=== PATIENT | female | born 1950 | race African-American/Black ===

== ENCOUNTER 2016-08-22 09:38 | Emergency (ER) | payer MEDICARE, OTHER ==
[~2016-08-22] VITALS: Ht 157.5 cm; Wt 60.0 kg
[~2016-08-22 09:38] MED LIST: PHEN32.43 PO
[2016-08-22 09:57] LABS: GLUCOSE,POINT OF CARE 65 MG/DL (70-110)
[2016-08-22] MEDS ORDERED: SODIUM CHLORIDE 0.9% 1,000 ML IV ONE (10:45)
[2016-08-22 11:02] LABS: GLUCOSE,POINT OF CARE 124 MG/DL (70-110)
[2016-08-22 11:20] LABS: BASOPHILS % (AUTO) 0.1 % (0.0-2.0); EOSINOPHILS # (AUTO) 0.01 K/uL (0.00-0.70); HEMOGLOBIN 12.9 g/dL (12.0-16.0); LYMPHOCYTES % (AUTO) 23.8 % (22.0-44.0); MEAN CORPUSCULAR HEMOGLOBIN 29.3 pg (26.0-34.0); MEAN CORPUSCULAR HGB CONC 32.3 G/dL (31.0-37.0); MEAN CORPUSCULAR VOLUME 91 fL (80-100); MONOCYTES # (AUTO) 0.1 K/uL (0.1-1.0); MONOCYTES % (AUTO) 3.3 % (2.0-9.0); NEUTROPHILS # (AUTO) 3.2 K/uL (1.8-7.7); NEUTROPHILS % (AUTO) 72.7 % (40.0-70.0); PLATELET COUNT (AUTO) 151 K/uL (150-450); RED CELL DISTRIBUTION WIDTH 14.4 % (11.5-14.5); WHITE BLOOD COUNT (AUTO) 4.3 K/uL (4.5-11.0)
[2016-08-22 11:29] LABS: ANION GAP 13 mmol/L (8-16); CARBON DIOXIDE 28 mmol/L (22-29); CHLORIDE 101 mmol/L (98-107); CREATININE 0.67 mg/dL (0.60-1.30); GLOMERULAR FILTR. RATE CALC > 60 mL/min (>60); SODIUM SERUM 142 mmol/L (136-145); UREA NITROGEN, BLOOD 8 mg/dL (7-18)
[2016-08-22 11:53] LABS: ALANINE AMINOTRANSFERASE 20 U/L (12-78); ALBUMIN 3.8 g/dL (3.4-5.0); ASPARTATE AMINOTRANSFERASE 18 U/L (15-37); BILIRUBIN,TOTAL 0.3 mg/dL (0.1-1.0); CREATINE KINASE MB 2.3 ng/mL (0-5); CREATINE KINASE, TOTAL 223 U/L (26-192)
[2016-08-22] MEDS ORDERED: POTASSIUM CHLORIDE 20 MEQ ER TABLET PO ONE (16:30)
[2016-08-22 16:31] LABS: ADD UA MICROSCOPIC YES; APPEARANCE,URINE CLOUDY (CLEAR); GLUCOSE, URINE (UA) NEGATIVE (NEGATIVE); KETONES,URINE NEGATIVE (NEGATIVE); LEUKOCYTE ESTERASE ,URINE NEGATIVE (NEGATIVE); OCCULT BLOOD,URINE SMALL (NEGATIVE); PH,URINE 7.5 (5.0-8.0); PROTEIN,URINE NEGATIVE (NEGATIVE)
[2016-08-22 16:42] LABS: SQUAMOUS EPITHELIAL CELL,UR Moderate /LPF (None Seen)
[2016-08-22 16:44] LABS: WBC,URINE 0-2 /HPF (0-5)
[2016-08-22 16:49] VITALS: BP 125/82
== END 2016-08-22 16:55 | disposition home or self-care (01) ==
LOC: EMS 09:40 → EEVIPCON 09:40 → EMS 16:55
DX: E86.0 Dehydration (principal); Z88.6 Allergy status to analgesic agent; Z88.8 Allergy status to other drugs, medicaments and biological substances
CPT/HCPCS: 36415; 71010; 80053; 80307; 81001; 82550; 82553; 82962; 84484; 85025; 87040; 93005; 96360; 99285; J7030

== ENCOUNTER 2018-07-12 19:26 | Emergency (ER) | payer MEDICARE, OTHER ==
[~2018-07-12] VITALS: Ht 165.1 cm; Wt 59.1 kg
[2018-07-12] MEDS ORDERED: DEXTROSE 50%-WATER 25 GM/50 ML SYRINGE IVP ONE (19:45)
[2018-07-12] MEDS ORDERED: LORazepam 2 MG/ML VIAL IVP ONE (19:45)
[2018-07-12 20:13] LABS: BASOPHILS % (AUTO) 1.3 % (0.0-2.0); EOSINOPHILS % (AUTO) 0.8 % (1.0-6.0); HEMOGLOBIN 11.9 g/dL (12.0-16.0); LYMPHOCYTES % (AUTO) 25.9 % (22.0-44.0); MEAN CORPUSCULAR HEMOGLOBIN 30.1 pg (26.0-34.0); MEAN CORPUSCULAR HGB CONC 33.1 G/dL (31.0-37.0); MEAN CORPUSCULAR VOLUME 91 fL (80-100); MONOCYTES # (AUTO) 0.3 K/uL (0.1-1.0); MONOCYTES % (AUTO) 7.4 % (2.0-9.0); NEUTROPHILS # (AUTO) 2.4 K/uL (1.8-7.7); NEUTROPHILS % (AUTO) 64.6 % (40.0-70.0); PLATELET COUNT (AUTO) 166 K/uL (150-450); RED BLOOD CELL COUNT(AUTO) 3.97 MIL/uL (4.00-5.20); RED CELL DISTRIBUTION WIDTH 14.3 % (11.5-14.5)
[2018-07-12] MEDS ORDERED: DIVA125T32 PO (20:13)
[2018-07-12 20:24] LABS: SALICYLATE < 2.8 mg/dL (2.8-20.0)
[2018-07-12 20:25] LABS: ANION GAP 7 mmol/L (8-16); CALCIUM, TOTAL 8.8 mg/dL (8.8-10.5); CARBON DIOXIDE 30 mmol/L (22-29); CHLORIDE 102 mmol/L (98-107); CREATININE 0.69 mg/dL (0.60-1.30); GLOMERULAR FILTR. RATE CALC > 60 mL/min (>60); GLUCOSE,RANDOM 179 mg/dL (70-110); POTASSIUM 4.2 mmol/L (3.5-5.1); SODIUM SERUM 139 mmol/L (136-145); UREA NITROGEN, BLOOD 11 mg/dL (7-18)
[2018-07-12] MEDS ORDERED: VALPROATE SODIUM 250 MG in DEXTROSE 5%-WATER 50 ML IV ONE ×4 (20:30)
[2018-07-12 20:31] LABS: ALANINE AMINOTRANSFERASE 16 U/L (12-78); ALBUMIN 3.4 g/dL (3.4-5.0); ALKALINE PHOSPHATASE 60 U/L (46-116); ASPARTATE AMINOTRANSFERASE 21 U/L (15-37); BILIRUBIN,TOTAL 0.2 mg/dL (0.1-1.0); LIPASE 97 U/L (73-393); TOTAL PROTEIN, SERUM 7.4 g/dL (6.4-8.2); VALPROIC ACID 7 mcg/mL (50-100)
[2018-07-12 20:32] LABS: ACETAMINOPHEN < 2 mcg/mL (10-30); AMMONIA < 10 umol/L (11-32); TROPONIN I < 0.02 ng/mL (0.00-0.05)
[2018-07-12 20:34] LABS: PLATELET MORPHOLOGY COMMENT NORMAL
[2018-07-12 21:03] LABS: GLUCOSE,POINT OF CARE 94 MG/DL (70-110)
[2018-07-12] MEDS ORDERED: VALPROATE SODIUM 750 MG in DEXTROSE 5%-WATER 100 ML IV ONE (21:45)
[2018-07-12 23:28] VITALS: BP 96/54
== END 2018-07-13 00:01 | disposition short-term general hospital (02) ==
LOC: EMS 19:27
DX: G40.909 Epilepsy, unspecified, not intractable, without status epilepticus (principal); E16.2 Hypoglycemia, unspecified; R89.2 Abnormal level of other drugs, medicaments and biological substances in specimens from other organs, systems and tissues; Z88.6 Allergy status to analgesic agent; Z88.8 Allergy status to other drugs, medicaments and biological substances
CPT/HCPCS: 36415; 70450; 80053; 80164; 82140; 82948; 82962; 83690; 84484; 85025; 93005; 96365; 96366; 96375; 99291; G0480; G0481; J2060; J3490; J7060 ×2